=== PATIENT | female | born 1990 | race American Indian/Alaskan Native ===

== ENCOUNTER 2021-10-07 18:46 | Emergency (ER) | payer MEDICAID ==
[2021-10-07] MEDS ORDERED: ACETAMINOPHEN 325 MG TAB PO ONE (19:18)
--- NOTE | 2021-10-07 19:53 | XRay Report ---
Left hip-2 views INDICATION: Hip pain. COMPARISON: None available. IMPRESSION: No acute osseous abnormality. Normal alignment. No significant DJD. Soft tissues are u nremarkable. Signer Name: Anatoly Foss MD Signed: 10/07/2021 7:49 PM Workstation Name: [id number]
--- NOTE | 2021-10-07 21:58 | Emergency Department Report ---
ED General Adult HPI - General Chief complaint: Extremity Injury, Lower Stated complaint: DISLOCATED HIP Source: patient Mode of arrival: Wheelchair Limitations: No Limitations - History of Present Illness Initial comments: 31-year-old female presents to the ED complaining left hip pain x1 week. 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 Patient states that pain is a 10 out of 10 with movement. Denies any dysuria , loss of bowel or bladder and vaginal discharge. No obvious deformity noted. No distracting injury noted .No edema noted. Patient is alert and oriented x3. No ill appearance noted. No acute distress noted. Severity scale (0 -10): 7 Improves with: none Worsens with: none Associated Symptoms: denies other symptoms - Related Data Previous Rx's Medication Instructions Recorded Last Taken Type Ibuprofen [Motrin 600 MG tab] 600 mg PO Q8H PRN #30 tablet 01/27/20 Unknown Rx methOCARBAMOL [Robaxin TAB] 500 mg PO Q6H PRN #20 tablet 01/27/20 Unknown Rx Allergies Allergy/AdvReac Type Severity Reaction Status Date / Time No Known Allergies Allergy Verified 01/27/20 18:39 ED Review of Systems ROS: Stated complaint: DISLOCATED HIP Other details as noted in HPI Constitutional: denies: chills, fever Eyes: denies: eye pain, eye discharge, vision change ENT: denies: ear pain, throat pain Respiratory: denies: cough, shortness of breath, wheezing Cardiovascular: denies: chest pain, palpitations Endocrine: no symptoms reported Gastrointestinal: denies: abdominal pain, nausea, diarrhea Genitourinary: denies: urgency, dysuria, discharge Musculoskeletal: arthralgia. denies: back pain, joint swelling Skin: denies: rash, lesions Neurological: denies: headache, weakness, paresthesias Psychiatric: denies: anxiety, depression Hematological/Lymphatic: denies: easy bleeding, easy bruising ED Past Medical Hx - Past Medical History Previous Medical History?: No - Surgical History Past Surgical History?: No - Social History Smoking Status: Current Some Day Smoker - Medications Home Medications: Home Medications Medication Instructions Recorded Confirmed Last Taken Type Ibuprofen [Motrin 600 MG tab] 600 mg PO Q8H PRN #30 tablet 01/27/20 Unknown Rx methOCARBAMOL [Robaxin TAB] 500 mg PO Q6H PRN #20 tablet 01/27/20 Unknown Rx ED Physical Exam - General Limitations: No Limitations General appearance: alert, in no apparent distress - Head Head exam: Present: atraumatic, normocephalic - Eye Eye exam: Present: normal appearance - ENT ENT exam: Present: mucous membranes moist - Neck Neck exam: Present: normal inspection - Respiratory Respiratory exam: Present: normal lung sounds bilaterally. Absent: respiratory distress - Cardiovascular Cardiovascular Exam: Present: regular rate, normal rhythm. Absent: systolic murmur, diastolic murmur, rubs, gallop - GI/Abdominal GI/Abdominal exam: Present: soft, normal bowel sounds - Extremities Exam Extremities exam: Present: normal inspection - Expanded Lower Extremity Exam Left Hip exam: Present: tenderness. Absent: swelling, laceration, ecchymosis, deformity, crepidus, dislocation - Back Exam Back exam: Present: normal inspection - Neurological Exam Neurological exam: Present: alert, oriented X3 - Psychiatric Psychiatric exam: Present: normal affect, normal mood - Skin Skin exam: Present: warm, dry, intact, normal color. Absent: rash ED Course Vital Signs 10/07/21 19:11 Temperature 98.2 F Pulse Rate 68 Respiratory 15 Rate Blood Pressure 108/65 O2 Sat by Pulse 100 Oximetry ED Medical Decision Making - Medical Decision Making 31-year-old female presents to the ED complaining left hip pain x1 week. 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 Patient states that pain is a 10 out of 10 with movement. Denies any dysuria , loss of bowel or bladder and vaginal discharge. No obvious deformity noted. No distracting injury noted .No edema noted. Patient is alert and oriented x3. No ill appearance noted. No acute distress noted. Physical examination unremarkable. Left Hip x-ray showed no abnormality. Toradol 60 mg given IM. Rechecked the patient is resting quietly quietly and comfortable and feeling better. I discussed the results of diagnostic study, my clinical impression and the plan for further treatment with the patient. Patient agrees with plan and discharge at this present time. All question addressed. I have given the patient instruction regarding a diagnosis ,expectation ,follow- up and return precaution. I explained to the patient that emergent condition may arise and to return to the ED for new worsen and any new persisting condition. I have explained the importance of following up with the primary care physician or referral physician listed below has instructed. The patient verbalized understanding of discharge instruction. Critical care attestation.: If time is entered above; I have spent that time in minutes in the direct care of this critically ill patient, excluding procedure time. ED Disposition Clinical Impression: Hip pain Disposition: HOME / SELF CARE / HOMELESS Is pt being admited?: No Does the pt Need Aspirin: No Condition: Stable Instructions: Hip Pain, How to Use Cold Therapy, [id number] Additional Instructions: Take medication as prescribed Return to ED for any worsening symptoms
[2021-10-07] MEDS ORDERED: KETOROLAC 60 MG/2 ML INJ IM ONE (22:05)
[2021-10-07 22:24] VITALS: BP 114/86
== END 2021-10-07 22:23 | disposition home or self-care (01) ==
LOC: ED 18:46
DX: M25.552 Pain in left hip (principal); F17.200 Nicotine dependence, unspecified, uncomplicated
CPT/HCPCS: 73502; 96372; 99283; J1885

== ENCOUNTER 2021-11-01 14:48 | Outpatient (CLI) | payer MEDICAID, OTHER ==
--- NOTE | 2021-11-01 16:41 | XRay Report ---
XR spine lumbosacral 2-3V HISTORY: M25.552 PAIN IN LEFT HIP COMPARISON: None. TECHNIQUE: 3 view(s) of the lumbar spine obtained. FINDINGS: Vertebrae: Normal alignment. Vertebral body heights are preserved. Spondylosis:Disc space heights are preserved. IMPRESSION: 1. No significant abnormality of the lumbar spine. Signer Name: Julito Marie MD Signed: 11/01/2021 4:37 PM Workstation Name: [id number]
== END 2021-11-01 14:49 | disposition home or self-care (01) ==
LOC: XRAY 14:48
PROVIDERS: ATTEND Orthopaedic Surgery
DX: M54.50 Low back pain, unspecified (principal); M25.552 Pain in left hip
CPT/HCPCS: 72100